=== PATIENT | male | born 1980 | race Caucasian/White ===

== ENCOUNTER 2019-03-08 03:46 | Emergency (ER) | payer OTHER ==
[~2019-03-08] VITALS: Ht 170.2 cm; Wt 68.0 kg
[2019-03-08] MEDS ORDERED: NOHOMEMEDICATIONS (04:18)
[2019-03-08 05:30] VITALS: BP 112/73
== END 2019-03-08 06:20 | disposition home or self-care (01) ==
LOC: ER 03:46
DX: F10.129 Alcohol abuse with intoxication, unspecified (principal); E11.9 Type 2 diabetes mellitus without complications; F17.210 Nicotine dependence, cigarettes, uncomplicated

== ENCOUNTER 2021-06-27 05:42 | Emergency (ER) | payer OTHER ==
[~2021-06-27] VITALS: Ht 182.9 cm; Wt 61.2 kg
--- NOTE | ~2021-06-27 | EMS ---
[place] [address] EMS Patient Care Report Name: SREEDHAR VASQUEZ Room #: DEP Zuri#: [id number] Admission: 06/27/21 Attend Phys: Discharge: 06/27/21 Date of : 80 Report #: [id number] THIS REPORT FOR: //name// Report Transmitted: 06/28/2021 12:37 EMS Care Summary [place], [place]/[facility] Incident [id number] @ 06/27/2021 05:20 Incident Location [address] [place] [address] Patient SREEDHAR VASQUEZ Male, 40 Years 1980 Patient Address [address] [place] [address] Patient History None Reported, Patient Allergies No known allergies, Patient Medications None Reported, Chief Complaint Abdominal Pain Disposition Transported No Lights/[place] Dispatch Reason Sick Person Transported To [facility] Narrative M36 and P37 was dispatched to a sick. M36 arrived on scene to find one male pt walking toward the unit. Pt advised he had been having abdominal pain for the past week and wanted to be transported to [facility]. Pt was moved into the unit and had a baseline set of vitals taken along with a full [place] assessment. [place] [address] EMS Patient Care Report Name: SREEDHAR VASQUEZ Room #: DEP ER MarianoDelfina#: [id number] Admission: 06/27/21 Attend Phys: Discharge: 06/27/21 Date of : 80 Report #: [id number] transported to [facility]. Pt care was transferred to RN at [facility]. M36 CLEARED CALL. Initial Vitals @05:35P: 117,R: 16,BP: 121/73,Pain: 0/10,GCS: 15,CO: 1,SpO2: 98,Revised Trauma: 12, @05:32P: 121,R: 16,BP: 179/135,Pain: 0/10,GCS: 15,CO: 2,SpO2: 97,Revised Trauma: 12, Assessments @05:30MENTAL:Person Oriented,Place Oriented,Time Oriented,Event Oriented,SKIN:HEENT:LUNG SOUNDS:General: Vomiting,General: Nausea,General: Diarrhea,ABDOMEN:General: Vomiting,General: Nausea,General: Diarrhea,PELVIS//GI:EXTREMITIES:PULSE:NEURO:No Abnormalities, Impression Abdominal Pain Procedures @05:30ALS AssessmentResponse: UnchangedSucceeded Timeline 05:19,Call Received 05:19,Dispatch Notified 05:20,Dispatched 05:21,En Route 05:29,On Scene 05:30,At Patient 05:30,ALS Assessment,Response: UnchangedSucceeded, 05:30,Depart Scene 05:32,BP: 179/135 M,PULSE: 121,RR: 16 R,SPO2: 97 Ox,ETCO2: ,BG: ,PAIN: 0,GCS: 15, 05:35,BP: 121/73 M,PULSE: 117,RR: 16 R,SPO2: 98 Ox,ETCO2: ,BG: ,PAIN: 0,GCS: 15, 05:40,At Destination 05:50,Call Closed Disclaimer [email or web address] Copyright 2020 [employer] This EMS Care Summary contains data elements from the applicable legal record (which may be displayed differently). It is designed to provide pertinent information for the following purposes: continuity of care, clinical quality, and state data reporting. The complete legal record is available to ED staff and administrators of the receiving hospital in [employer]'s Patient Tracker. All data is provided "as is."
[~2021-06-27 05:42] MED LIST: NOHOMEMEDICATIONS
[2021-06-27] MEDS ORDERED: NOVOLIN N100 UNIT/1 SUBQ ×2 (06:12→06:13)
[2021-06-27] MEDS ORDERED: NOVOLIN R100 UNIT/1 SUBQ (06:13)
[2021-06-27 06:29] LABS: ABSOLUTE NEUTROPHILS 3.1 thou/uL (1.4-8.2); BASOPHILS 0.3 % (0.0-2.0); EOSINOPHILS 5.4 % (0.0-3.0); HEMATOCRIT 45.6 % (42.0-52.0); HEMOGLOBIN 15.8 gm/dL (14.0-18.0); LYMPHOCYTES 35.6 % (24.0-44.0); MCH 31.5 pg (26.0-34.0); MCHC 34.6 g/dL (28.0-37.0); MCV 91.2 fL (80.0-100.0); MONOCYTES 8.5 % (1.0-8.0); PLATELET COUNT 317 thou/uL (150-400); POLYS 50.2 % (36.0-66.0); RDW 12.7 % (10.5-14.5); WBC 6.1 thou/uL (4.0-11.0)
[2021-06-27 06:32] LABS: CALCIUM 8.7 mg/dL (8.5-10.1); CREATININE 0.9 mg/dL (0.7-1.3); POTASSIUM 3.2 mmol/L (3.5-5.1)
[2021-06-27 06:36] LABS: URINE BILIRUBIN NEGATIVE (Negative); URINE BLOOD NEGATIVE (Negative); URINE CLARITY CLEAR; URINE COLOR YELLOW; URINE GLUCOSE-RANDOM* 2+ (Negative); URINE KETONES TRACE (Negative); URINE LEUKOCYTES-REFLEX NEGATIVE (Negative); URINE NITRITE-REFLEX NEGATIVE (Negative); URINE PROTEIN (DIPSTICK) TRACE (Negative); URINE UROBILINOGEN 0.2 E.U./dl (0.2-1.0)
[2021-06-27 06:38] LABS: ALBUMIN 3.4 g/dL (3.4-5.0); TOTAL BILIRUBIN 0.6 mg/dL (0.2-1.0); TOTAL PROTEIN 7.2 g/dL (6.4-8.2)
[2021-06-27 07:21] VITALS: BP 100/58
[2021-06-27] MEDS ORDERED: ZOFRAN ODT4 MG PO (08:54)
[2021-06-27] MEDS ORDERED: BENTYL 10 MG CA10 MG PO (08:54)
== END 2021-06-27 09:10 | disposition home or self-care (01) ==
LOC: ER 05:42
PROVIDERS: Emergency Medicine
DX: R11.2 Nausea with vomiting, unspecified (principal); R19.7 Diarrhea, unspecified; F17.210 Nicotine dependence, cigarettes, uncomplicated